=== PATIENT | female | born 1930 | race Caucasian/White ===

== ENCOUNTER 2016-10-25 17:43 | Emergency (ER) | payer MEDICARE, BC ==
[2016-10-25] MEDS ORDERED: OPTIRAY 350 100 ML VIAL HMH IV ONE (17:44)
[2016-10-25] MEDS ORDERED: DILAUDID 1 MG/ML AMP ONE (18:21)
[2016-10-25] MEDS ORDERED: ONDANSETRON 4 MG VIAL ONE (18:22)
[2016-10-25] MEDS ORDERED: SODIUM CHLORIDE 0.9% 1,000 ML ONE (18:22)
== END 2016-10-26 00:40 | disposition home or self-care (01) ==
LOC: ER 17:43
DX: R10.31 Right lower quadrant pain (principal); M43.8X6 Other specified deforming dorsopathies, lumbar region
CPT/HCPCS: 36415; 74177; 80053; 81001; 83605; 83690; 85025; 87088; 96361; 96374; 96376; 99285; J1170; J2405; Q9967